=== PATIENT | male | born 1970 | race African-American/Black ===

== ENCOUNTER → 2017-02-21 | Outpatient (CLI) | payer OTHER ==
[2016-11-20 16:19] VITALS: BP 167/114
[~2017-02-21] MED LIST: ALBU2.5V5 NEB; ALBU8.5H6 INH; AZIT1PAC PO; CETI10TA16 PO; FLUT1DIS3 IH; FLUT9.9S NS
--- NOTE | 2017-02-21 12:48 | KCIC ---
PROCEDURE PA and lateral chest radiographs 02/21/2017 HISTORY Chronic cough and wheezing. FINDINGS PA and lateral digital radiographs of the chest were obtained. No previous studies are available for comparison. The cardiac silhouette is borderline enlarged. The thoracic aorta is mildly tortuous. Right middle lobe subsegmental atelectasis and/or infiltrate is noted. No pneumothorax or pleural effusion is seen. Mild degenerative changes are seen involving the thoracic spine. IMPRESSION Right middle lobe subsegmental atelectasis and/or infiltrate. Electronically signed by: Mack Nelson MD (February 21, 2017 12:47:06)
== END | disposition home or self-care (01) ==
LOC: KCIC 09:30
PROVIDERS: ATTEND Nurse Practitioner Family
DX: R05 Cough (principal); J98.11 Atelectasis; K76.89 Other specified diseases of liver; R06.2 Wheezing; G89.29 Other chronic pain
CPT/HCPCS: 71020

== ENCOUNTER → 2017-03-25 | Outpatient (CLI) | payer OTHER ==
[2016-11-20 16:19] VITALS: BP 167/114
--- NOTE | 2017-03-25 12:25 | KCIC ---
2 view chest HISTORY: Cough persistent. COMPARISON: February 21, 2017. FINDINGS: The cardiac silhouette remains mildly enlarged in transverse diameter. No pneumothorax. No pleural effusion. No focal airspace consolidation is seen. IMPRESSION: No evidence of active airspace disease. Electronically signed by: Philip Ruiz MD (03/25/2017 12:22 PM)
== END | disposition home or self-care (01) ==
LOC: KCIC 11:42
PROVIDERS: ATTEND Family Medicine
DX: R05 Cough (principal)
CPT/HCPCS: 71020

== ENCOUNTER 2017-06-03 05:37 | Inpatient (IN) | payer OTHER ==
[~2017-06-03] VITALS: Ht 180.3 cm; Wt 112.2 kg
[2017-06-03 06:50] LABS: BASO # 0.1 x10^3/uL (0.0-0.2); BASO % 1 % (0-3); EOS % 14 % (0-3); HEMATOCRIT 41.7 % (39.0-53.0); HEMOGLOBIN 13.8 g/dL (13.0-17.5); LYMPH # 1.9 x10^3/uL (1.0-4.8); LYMPH % 25 % (24-48); MEAN CORPUSCULAR HEMOGLOBIN 28 pg (25-35); MEAN CORPUSCULAR HGB CONC 33 g/dL (31-37); MEAN CORPUSCULAR VOLUME 83 fL (79-100); MONO % 5 % (0-9); NEUT % 56 % (31-73); PLATELET COUNT 304 x10^3/uL (140-400); RED BLOOD COUNT 5.03 x10^6/uL (4.30-5.70); RED CELL DISTRIBUTION WIDTH 13.2 % (11.5-14.5); WHITE BLOOD COUNT 7.6 x10^3/uL (4.0-11.0)
[2017-06-03] MEDS ORDERED: IPRATRPIUM/ALBUTEROL 0.5/2.5MG 3 ML NEBU. NEB ONE (07:00)
[2017-06-03] MEDS ORDERED: predniSONE 20 MG TABLET PO ONE (07:00)
[2017-06-03 07:05] LABS: CALCIUM 8.5 mg/dL (8.5-10.1); CREATININE 1.4 mg/dL (0.7-1.3); GFR 66.6; POTASSIUM 3.9 mmol/L (3.5-5.1)
--- NOTE | 2017-06-03 07:09 | EKG ---
[facility] [address] [place] [address] Test Date: 2017-06-03 Test Time: 06:53:16 Pat Name: LUCIO SUAREZ Department: Room: Gender: M [employer] Litigation Associate: : 1970 Requested By: RACHEL VALLE Order Number: [id number] Reading MD: Bang Mccoy Measurements Intervals [place] Rate: 74 P: 0 PA: 132 QRS: 5 QRSD: 154 T: -18 QT: 442 QTc: 497 Interpretive Statements SINUS RHYTHM POSSIBLE SEPTAL INFARCT IVCD NON-SPECIFIC ST/T CHANGES LVH Electronically Signed On 06-03-2017 12:06:26 CDT by Bang Mccoy
--- NOTE | 2017-06-03 07:18 | RAD ---
Exam performed: 2 views of the chest. Indication: medical workup/SHORTNESS OF BREATH Date of Service:06/03/2017 8:41 AM . Comparison : None available Findings: PA and lateral radiographs of the chest reveal a normal cardiomediastinal contour. The lungs are clear. No pleural fluid is seen. The visualized osseous structures are unremarkable. Impression: Radiographically normal chest.
[2017-06-03] MEDS ORDERED: NITROGLYCERIN OINT 1 GM PACKET. TP ONE (08:00)
[2017-06-03] MEDS ORDERED: ASPIRIN 325 MG TABLET PO ONE (08:00)
--- NOTE | 2017-06-03 08:09 | PHYS DOC ---
Past Medical History Past Medical History: Hypertension Past Surgical History: Other Additional Past Surgical Histo: NASAL SURG Alcohol Use: Occasionally Drug Use: Marijuana Adult General Chief Complaint Chief Complaint: ASTHMA HPI HPI 46-year-old male with no significant past medical history now presents to the emergency department because of wheezing and shortness of breath. Patient states he does not have a history of asthma nor has he ever been a smoker. Recently he's been wheezing and felt short of breath. He went to his primary care doctor who treated him for bronchospasm with steroids Zithromax and nebulized therapy and anticipated referring him to a health occupations instructor. Patient has not seen a health occupations instructor yet however this symptoms have worsened including increased shortness of breath with lying flat and feeling short of breath at night. He is more short of breath with exertion recently. Denies pleuritic pain or any chest pain or pressure. Patient states he occasionally has some white sputum but no yellow or green sputum. No fevers chills sweats or shaking chills and patient otherwise feels well. Review of Systems Review of Systems Constitutional: Denies fever or chills [] Eyes: Denies change in visual acuity, redness, or eye pain [] HENT: Denies nasal congestion or sore throat [] Respiratory: Denies cough or shortness of breath [] Cardiovascular: No additional information not addressed in HPI [] GI: Denies abdominal pain, nausea, vomiting, bloody stools or diarrhea [] : Denies dysuria or hematuria [] Musculoskeletal: Denies back pain or joint pain [] Integument: Denies rash or skin lesions [] Neurologic: Denies headache, focal weakness or sensory changes [] Endocrine: Denies polyuria or polydipsia [] Current Medications Current Medications Current Medications Medications (Trade) Dose Ordered Sig/Riky Start Time Stop Time Status Last Admin Dose Admin Albuterol/ Ipratropium (Duoneb) 3 ml 1X ONCE 06/03/17 07:00 06/03/17 07:01 DC 06/03/17 07:20 3 ML Aspirin (Misha Aspirin) 325 mg 1X ONCE 06/03/17 08:00 06/03/17 08:01 DC 06/03/17 07:58 325 MG Nitroglycerin (Nitro-Bid Oint) 1 inch 1X ONCE 06/03/17 08:00 06/03/17 08:01 DC 06/03/17 08:00 1 INCH Prednisone (Prednisone) 60 mg 1X ONCE 06/03/17 07:00 06/03/17 07:01 DC 06/03/17 06:52 60 MG Allergies Allergies Allergies Coded Allergies Type Severity Reaction Last Updated Verified No Known Drug Allergies 09/20/14 No Physical Exam Physical Exam Well-appearing 46-year-old male alert vigorous normal respiratory rate and pulse ox. Trace bilateral wheeze lung bases. No rales or rhonchi. No lower extremity tenderness or asymmetry Constitutional: Well developed, well nourished, no acute distress, non-toxic appearance. [] HENT: Normocephalic, atraumatic, bilateral external ears normal, oropharynx moist, no oral exudates, nose normal. [] Eyes: PERRLA, EOMI, conjunctiva normal, no discharge. [] Neck: Normal range of motion, no tenderness, supple, no stridor. [] Cardiovascular:Heart rate regular rhythm, no murmur [] Lungs & Thorax: Bilateral breath sounds clear to auscultation [] Abdomen: Bowel sounds normal, soft, no tenderness, no masses, no pulsatile masses. [] Skin: Warm, dry, no erythema, no rash. [] Back: No tenderness, no CVA tenderness. [] Extremities: No tenderness, no cyanosis, no clubbing, ROM intact, Neurologic: Alert and oriented X 3, normal motor function, normal sensory function, no focal deficits noted. [] Psychologic: Affect normal, judgement normal, mood normal. [] Current Patient Data Vital Signs Vital Signs Date Time Temp Pulse Resp B/P (MAP) Pulse Ox O2 Delivery O2 Flow Rate FiO2 06/03/17 08:00 80 167/114 06/03/17 07:20 95 Room Air 06/03/17 07:12 20 06/03/17 05:51 98.3 98.3 Lab Values Laboratory Tests Test 06/03/17 06:06 White Blood Count 7.6 x10^3/uL (4.0-11.0) Red Blood Count 5.03 x10^6/uL (4.30-5.70) Hemoglobin 13.8 g/dL (13.0-17.5) Hematocrit 41.7 % (39.0-53.0) Mean Corpuscular Volume 83 fL (79-100) Mean Corpuscular Hemoglobin 28 pg (25-35) Mean Corpuscular Hemoglobin Concent 33 g/dL (31-37) Red Cell Distribution Width 13.2 % (11.5-14.5) Platelet Count 304 x10^3/uL (140-400) Neutrophils (%) (Auto) 56 % (31-73) Lymphocytes (%) (Auto) 25 % (24-48) Monocytes (%) (Auto) 5 % (0-9) Eosinophils (%) (Auto) 14 % (0-3) H Basophils (%) (Auto) 1 % (0-3) Neutrophils # (Auto) 4.2 x10^3uL (1.8-7.7) Lymphocytes # (Auto) 1.9 x10^3/uL (1.0-4.8) Monocytes # (Auto) 0.4 x10^3/uL (0.0-1.1) Eosinophils # (Auto) 1.0 x10^3/uL (0.0-0.7) H Basophils # (Auto) 0.1 x10^3/uL (0.0-0.2) Sodium Level 139 mmol/L (136-145) Potassium Level 3.9 mmol/L (3.5-5.1) Chloride Level 102 mmol/L (98-107) Carbon Dioxide Level 28 mmol/L (21-32) Anion Gap 9 (6-14) Blood Urea Nitrogen 17 mg/dL (8-26) Creatinine 1.4 mg/dL (0.7-1.3) H Estimated GFR (Cockcroft-Gault) 66.6 Glucose Level 101 mg/dL (70-99) H Calcium Level 8.5 mg/dL (8.5-10.1) Troponin I Quantitative 0.332 ng/mL (0.000-0.055) CI-Etd-I-Type Natriuretic Peptide 524 pg/mL (0-124) H Laboratory Tests 06/03/17 06:06 Laboratory Tests 06/03/17 06:06 EKG EKG [] Radiology/Procedures Radiology/Procedures [] Course & Med Decision Making Course & Med Decision Making Pertinent Labs and Imaging studies reviewed. (See chart for details)\ 46-year-old male with no history of tobacco or asthma now with signs and symptoms consistent with bronchospasm secondary to a viral illness versus cardiac wheeze. EKG unremarkable and chest x-ray benign. Troponin elevated at 0.332. Full strength aspirin given. ENP elevated at 524 consistent with mild new -onset CHF likely from a cardiac event. Patient is stable and well-appearing. Case discussed with cardiology on-call Dr. Mata who is aware of the history and findings and will provide consultation for this patient during admission. Case will be discussed with Dr. fonseca regarding inpatient admission to the CBC unit. Patient stable on multiple reevaluation 33 mins critical care [] Dragon Disclaimer Dragon Disclaimer This electronic medical record was generated, in whole or in part, using a voice recognition dictation system. Departure Departure Impression: Primary Impression: Non-STEMI (non-ST elevated myocardial infarction) Additional Impression: New onset of congestive heart failure Disposition: ADMITTED INPATIENT Admitting Physician: Michelle Fonseca Condition: GUARDED Referrals: UNKNOWN PCP NAME (PCP) Problem Qualifiers RACHEL VALLE MD Jun 03, 2017 08:09
[2017-06-03] MEDS ORDERED: BUDESONIDE 0.5 MG/2 ML NEBU. NEB ONE (08:45)
[2017-06-03 09:14] LABS: ALBUMIN 3.7 g/dL (3.4-5.0); DIRECT BILIRUBIN 0.2 mg/dL (0.0-0.2); TOTAL PROTEIN 7.5 g/dL (6.4-8.2)
--- NOTE | 2017-06-03 09:45 | PDOC2 ---
AGUSTINA WATSON WIRELESS DEVELOPMENT MANAGER 06/03/17 0945: CARDIAC CONSULT DATE OF CONSULT Date of Consult DATE: 06/03/17 TIME: 09:42 REASON FOR CONSULT Reason for Consult: New onset CHF Elevated troponin REFERRING PHYSICIAN Referring Physician: Dr. Cage SOURCE Source: Chart review, Patient HISTORY OF PRESENT ILLNESS HISTORY OF PRESENT ILLNESS This is a 46 yo male who presented with complaints of shortness of breath. Patient reports chronic SOA and nasal congestion, although congestion has improved slightly since sinus surgery a year ago. Shortness of breath has been worse over the last coupled of weeks. Significantly worse in the last couple of days and was associated with wheezing. Has nebulizer and inhalers at home. Generally improve symptoms, but has not obtained any relief in symptoms in the last couple of days. Denies any chest pain, palpitations, diaphoresis, nausea/ vomiting, orthopnea, or LE edema. Did have some mild dizziness this morning. Initial labs with troponin level at 0.332. Nt Pro BNP mildly elevated at 524, but CXR without vascular congestion. PAST MEDICAL HISTORY Cardiovascular: HTN Pulmonary: Asthma GI: No pertinent hx Heme/Onc: No pertinent hx Hepatobiliary: No pertinent hx Psych: No pertinent hx Rheumatologic: No pertinent hx Infectious disease: No pertinent hx ENT: No pertinent hx Renal/: No pertinent hx Endocrine: No pertinent hx Dermatology: No pertinent hx PAST SURGICAL HISTORY Past Surgical History: Other (nasal sx) FAMILY HISTORY Family History: Hypertension SOCIAL HISTORY Smoke: No ALCOHOL: none Drugs: Marijuana (quit about 3 months ago; was daily use) Lives: with Family CURRENT MEDICATIONS CURRENT MEDICATIONS Current Medications Medications (Trade) Dose Ordered Sig/Riky Route PRN Reason Start Time Stop Time Status Last Admin Dose Admin Prednisone (Prednisone) 60 mg 1X ONCE PO 06/03/17 07:00 06/03/17 07:01 DC 06/03/17 06:52 Albuterol/ Ipratropium (Duoneb) 3 ml 1X ONCE NEB 06/03/17 07:00 06/03/17 07:01 DC 06/03/17 07:20 Nitroglycerin (Nitro-Bid Oint) 1 inch 1X ONCE TP 06/03/17 08:00 06/03/17 08:01 DC 06/03/17 08:00 Aspirin (Misha Aspirin) 325 mg 1X ONCE PO 06/03/17 08:00 06/03/17 08:01 DC 06/03/17 07:58 ALLERGIES ALLERGIES: Coded Allergies: No Known Drug Allergies (Unverified , 09/20/14) ROS Review of System 14 point ROS conducted with pertinent positives noted above in HPI. PHYSICAL EXAM General: Alert, Oriented X3, Cooperative, No acute distress HEENT: Atraumatic, Mucous membr. moist/pink Lungs: Clear to auscultation (expiratory wheezes) Heart: Regular rate, Normal S1, Normal S2 Abdomen: Soft, No tenderness Extremities: No edema, Normal pulses Skin: No significant lesion Neuro: Normal speech, Sensation intact Psych/Mental Status: Mental status NL, Mood NL MUSCULOSKELETAL: No joint tenderness VITALS VITALS Vital Signs Date Time Temp Pulse Resp B/P (MAP) Pulse Ox O2 Delivery O2 Flow Rate FiO2 06/03/17 08:12 77 18 161/108 (125) 95 Room Air 06/03/17 05:51 98.3 98.3 LABS Lab: Laboratory Tests Test 06/03/17 06:06 White Blood Count 7.6 x10^3/uL (4.0-11.0) Red Blood Count 5.03 x10^6/uL (4.30-5.70) Hemoglobin 13.8 g/dL (13.0-17.5) Hematocrit 41.7 % (39.0-53.0) Mean Corpuscular Volume 83 fL (79-100) Mean Corpuscular Hemoglobin 28 pg (25-35) Mean Corpuscular Hemoglobin Concent 33 g/dL (31-37) Red Cell Distribution Width 13.2 % (11.5-14.5) Platelet Count 304 x10^3/uL (140-400) Neutrophils (%) (Auto) 56 % (31-73) Lymphocytes (%) (Auto) 25 % (24-48) Monocytes (%) (Auto) 5 % (0-9) Eosinophils (%) (Auto) 14 % (0-3) Basophils (%) (Auto) 1 % (0-3) Neutrophils # (Auto) 4.2 x10^3uL (1.8-7.7) Lymphocytes # (Auto) 1.9 x10^3/uL (1.0-4.8) Monocytes # (Auto) 0.4 x10^3/uL (0.0-1.1) Eosinophils # (Auto) 1.0 x10^3/uL (0.0-0.7) Basophils # (Auto) 0.1 x10^3/uL (0.0-0.2) Sodium Level 139 mmol/L (136-145) Potassium Level 3.9 mmol/L (3.5-5.1) Chloride Level 102 mmol/L (98-107) Carbon Dioxide Level 28 mmol/L (21-32) Anion Gap 9 (6-14) Blood Urea Nitrogen 17 mg/dL (8-26) Creatinine 1.4 mg/dL (0.7-1.3) Estimated GFR (Cockcroft-Gault) 66.6 Glucose Level 101 mg/dL (70-99) Calcium Level 8.5 mg/dL (8.5-10.1) Total Bilirubin 1.0 mg/dL (0.2-1.0) Direct Bilirubin 0.2 mg/dL (0.0-0.2) Aspartate Amino Transf (AST/SGOT) 19 U/L (15-37) Alanine Aminotransferase (ALT/SGPT) 32 U/L (16-63) Alkaline Phosphatase 98 U/L (46-116) Troponin I Quantitative 0.332 ng/mL (0.000-0.055) SH-Kbz-H-Type Natriuretic Peptide 524 pg/mL (0-124) Total Protein 7.5 g/dL (6.4-8.2) Albumin 3.7 g/dL (3.4-5.0) ASSESSMENT/PLAN ASSESSMENT/PLAN 1. Dyspnea 2. NSTEMI 3. Elevated NT Pro BNP 4. Hypertension 5. SUSHILA with ? CKD; baseline Cr near 1.0 in 2015 Recommendations Trend troponin Check lipids Add Norvasc for BP control (BP consistently elevated during previous hospitalization as well). Check echo to assess LV function/presence of WMA Keep NPO after MN. Will plan for ischemic workup in am, cath versus MPI, pending further labs/diagnostics. Will d/w primary gate tender. Problems: CONNIE LEON MD 06/04/17 0820: CARDIAC CONSULT ALLERGIES ALLERGIES: Coded Allergies: No Known Drug Allergies (Unverified , 09/20/14) ASSESSMENT/PLAN ASSESSMENT/PLAN Patient seen and examined. Agree with above nurse practitioner note. Late entry for 06/03/2017. 36-year-old man presenting with progressive dyspnea. On examination he has normal heart and lung sounds. Echocardiogram with severe LV dysfunction. Plan for cardiac catheterization Problems: AGUSTINA WATSON APRN Jun 03, 2017 09:45 CONNIE LEON MD Jun 04, 2017 08:20
[2017-06-03 10:00] VITALS: BP 163/100
[2017-06-03 11:00] VITALS: BP 163/100
[2017-06-03] MEDS: IPRATRPIUM/ALBUTEROL 0.5/2.5MG 3 ML NEBU. NEB SCH ×4 (12:43→23:08)
[2017-06-03] MEDS: amLODIPine BESYLATE 5 MG TABLET PO SCH (13:04)
--- NOTE | 2017-06-03 13:07 | PDOC1 ---
History and Physical Date of Admission Date of Admission DATE: 06/03/17 TIME: 13:01 Identification/Chief Complaint Chief Complaint cough, wheeze, dyspnea Problems: Source Source: Chart review, Patient History of Present Illness History of Present Illness MR. Parnell is a 46 yo male, recent diagnosed with asthma. Presented without improvement of wheeze, weakness and shortness of breath have been worsening over days. not fully diagnosed with asthma, but given nebs recently that have not helped much, his symptoms have gone on for months, he stopped smoking THC due to his cough and shortness of breath with wheeze. He does get more short of breath when lying supine, and does sit up to "have less wheezing" recent z-pack did not improve his symptoms. noted worse exercise intolerance recently no chest pain, no tobacco use, no family hx cad Past Medical History Cardiovascular: HTN Pulmonary: Asthma GI: No pertinent hx Heme/Onc: No pertinent hx Hepatobiliary: No pertinent hx Psych: No pertinent hx Rheumatologic: No pertinent hx Infectious disease: No pertinent hx ENT: No pertinent hx Renal/: No pertinent hx Endocrine: No pertinent hx Dermatology: No pertinent hx Past Surgical History Past Surgical History: Other (nasal sx) Family History Family History: Hypertension Social History Smoke: No ALCOHOL: none Drugs: Marijuana (quit about 3 months ago; was daily use) Current Problem List Problem List Problems Medical Problems: (1) New onset of congestive heart failure Status: Acute Problems: Current Medications Current Medications Current Medications Prednisone (Prednisone) 60 mg 1X ONCE PO Last administered on 06/03/17 06:52 ; Start 06/03/17 at 07:00; Stop 06/03/17 at 07:01; Status DC Albuterol/ Ipratropium (Duoneb) 3 ml 1X ONCE NEB Last administered on 07:20; Start 06/03/17 at 07:00; Stop 06/03/17 at 07:01; Status DC Nitroglycerin (Nitro-Bid Oint) 1 inch 1X ONCE TP Last administered on 08:00; Start 06/03/17 at 08:00; Stop 06/03/17 at 08:01; Status DC Aspirin (Misha Aspirin) 325 mg 1X ONCE PO Last administered on 06/03/17 07:58 ; Start 06/03/17 at 08:00; Stop 06/03/17 at 08:01; Status DC Budesonide (Pulmicort) 0.5 mg 1X ONCE NEB Last administered on 06/03/17 12:44 ; Start 06/03/17 at 08:45; Stop 06/03/17 at 08:46; Status DC Albuterol/ Ipratropium (Duoneb) 3 ml Q4HRS W/A NEB Last administered on 12:43; Start 06/03/17 at 10:00 Amlodipine Besylate (Norvasc) 5 mg DAILY PO ; Start 06/03/17 at 11:30 Active Scripts Active Albuterol Sulfate Neb Soln (Albuterol Sulfate) 2.5 Mg/3 Ml Vial.neb 1 Vial NEB PRN Q4HRS PRN Reported Zithromax Packet (Azithromycin) 1 Gm Packet 1 Packet PO ONCE take as directed, antibiotic for infection Flonase Allergy Relief (Fluticasone Propionate) 9.9 Ml [place].susp 9.9 Ml NS QID 1-2 sprays four times daily for congestion Advair 250-50 Diskus (Fluticasone/Salmeterol) 1 Each Disk.w.dev 1 Inh IH BID Albuterol Sulfate Hfa Inhaler (Albuterol Sulfate) 8.5 Gm Hfa.aer.ad 2 Puff INH Q2HR as needed every 2 hours for shortness of air Cetirizine Hcl 10 Mg Tablet 10 Mg PO DAILY Allergies Allergies: Coded Allergies: No Known Drug Allergies (Unverified , 09/20/14) ROS General: No: Chills, Night Sweats, Fatigue, Malaise, Appetite, Other PSYCHOLOGICAL ROS: No: Anxiety, Behavioral Disorder, Concentration difficultie , Decreased libido, Depression, Disorientation, Hallucinations, Hostility, Irritablity, Memory difficulties, Mood Swings, Obsessive thoughts, Physical abuse, Sexual abuse, Sleep disturbances, Suicidal ideation, Other Respiratory: YES: Cough, SOB with excertion, Wheezing, No: Hemoptysis, Orthopnea, Pleuritic Pain, Shortness of breath, Sputum Changes, Stridor, Tachypnea, Other Cardiovascular: No Chest Pain, No Palpitations, No Orthopnea, No Paroxysmal Noc. Dyspnea, No Edema, No Lt Headedness, No Other Gastrointestinal: No Nausea, No Vomiting, No Abdominal Pain, No Diarrhea, No Constipation, No Melena, No Hematochezia, No Other Genitourinary: No Dysuria, No Frequency, No Incontinence, No Hematuria, No Retention, No Discharge, No Urgency, No Pain, No Flank Pain, No Other, No , No , No , No , No , No , No Musculoskeletal: Yes Joint Stiffness, No Gait Disturbance, No Joint Pain, No Joint Swelling, No Muscle Pain, No Muscular Weakness, No Pain In:, No Swelling In:, No Other Neurological: No Behavorial Changes, No Bowel/Bladder ControlChng, No Confusion , No Dizziness, No Gait Disturbance, No Headaches, No Impaired Coord/balance, No Memory Loss, No Numbness/Tingling, No Seizures, No Speech Problems, No Tremors, No Visual Changes, No Weakness, No Other Skin: No Dry Skin, No Eczema, No Hair Changes, No Lumps, No Mole Changes, No Mottling, No Nail Changes, No Pruritus, No Rash, No Skin Lesion Changes, No Other, No Acne Physical Exam General: Alert, Oriented X3, Cooperative, mild distress HEENT: Atraumatic, PERRLA, EOMI, Mucous membr. moist/pink Lungs: Clear to auscultation Heart: no murmurs, other (small gallop, reg) Abdomen: Normal bowel sounds, Soft Rectal Exam: not examined Extremities: No clubbing, No edema, Normal pulses Skin: No rashes, No breakdown, No significant lesion Neuro: Normal speech, Sensation intact, Cranial nerves 3-12 NL Psych/Mental Status: Mental status NL, Mood NL Vitals Vitals Vital Signs Date Time Temp Pulse Resp B/P (MAP) Pulse Ox O2 Delivery O2 Flow Rate FiO2 06/03/17 12:50 93 Room Air 06/03/17 11:00 97.8 85 19 163/100 (121) 97.8 Labs Labs Laboratory Tests Test 06/03/17 06:06 White Blood Count 7.6 x10^3/uL (4.0-11.0) Red Blood Count 5.03 x10^6/uL (4.30-5.70) Hemoglobin 13.8 g/dL (13.0-17.5) Hematocrit 41.7 % (39.0-53.0) Mean Corpuscular Volume 83 fL (79-100) Mean Corpuscular Hemoglobin 28 pg (25-35) Mean Corpuscular Hemoglobin Concent 33 g/dL (31-37) Red Cell Distribution Width 13.2 % (11.5-14.5) Platelet Count 304 x10^3/uL (140-400) Neutrophils (%) (Auto) 56 % (31-73) Lymphocytes (%) (Auto) 25 % (24-48) Monocytes (%) (Auto) 5 % (0-9) Eosinophils (%) (Auto) 14 % (0-3) Basophils (%) (Auto) 1 % (0-3) Neutrophils # (Auto) 4.2 x10^3uL (1.8-7.7) Lymphocytes # (Auto) 1.9 x10^3/uL (1.0-4.8) Monocytes # (Auto) 0.4 x10^3/uL (0.0-1.1) Eosinophils # (Auto) 1.0 x10^3/uL (0.0-0.7) Basophils # (Auto) 0.1 x10^3/uL (0.0-0.2) Sodium Level 139 mmol/L (136-145) Potassium Level 3.9 mmol/L (3.5-5.1) Chloride Level 102 mmol/L (98-107) Carbon Dioxide Level 28 mmol/L (21-32) Anion Gap 9 (6-14) Blood Urea Nitrogen 17 mg/dL (8-26) Creatinine 1.4 mg/dL (0.7-1.3) Estimated GFR (Cockcroft-Gault) 66.6 Glucose Level 101 mg/dL (70-99) Calcium Level 8.5 mg/dL (8.5-10.1) Total Bilirubin 1.0 mg/dL (0.2-1.0) Direct Bilirubin 0.2 mg/dL (0.0-0.2) Aspartate Amino Transf (AST/SGOT) 19 U/L (15-37) Alanine Aminotransferase (ALT/SGPT) 32 U/L (16-63) Alkaline Phosphatase 98 U/L (46-116) Troponin I Quantitative 0.332 ng/mL (0.000-0.055) XC-Jrl-C-Type Natriuretic Peptide 524 pg/mL (0-124) Total Protein 7.5 g/dL (6.4-8.2) Albumin 3.7 g/dL (3.4-5.0) Laboratory Tests Test 06/03/17 06:06 White Blood Count 7.6 x10^3/uL (4.0-11.0) Red Blood Count 5.03 x10^6/uL (4.30-5.70) Hemoglobin 13.8 g/dL (13.0-17.5) Hematocrit 41.7 % (39.0-53.0) Mean Corpuscular Volume 83 fL (79-100) Mean Corpuscular Hemoglobin 28 pg (25-35) Mean Corpuscular Hemoglobin Concent 33 g/dL (31-37) Red Cell Distribution Width 13.2 % (11.5-14.5) Platelet Count 304 x10^3/uL (140-400) Neutrophils (%) (Auto) 56 % (31-73) Lymphocytes (%) (Auto) 25 % (24-48) Monocytes (%) (Auto) 5 % (0-9) Eosinophils (%) (Auto) 14 % (0-3) Basophils (%) (Auto) 1 % (0-3) Neutrophils # (Auto) 4.2 x10^3uL (1.8-7.7) Lymphocytes # (Auto) 1.9 x10^3/uL (1.0-4.8) Monocytes # (Auto) 0.4 x10^3/uL (0.0-1.1) Eosinophils # (Auto) 1.0 x10^3/uL (0.0-0.7) Basophils # (Auto) 0.1 x10^3/uL (0.0-0.2) Sodium Level 139 mmol/L (136-145) Potassium Level 3.9 mmol/L (3.5-5.1) Chloride Level 102 mmol/L (98-107) Carbon Dioxide Level 28 mmol/L (21-32) Anion Gap 9 (6-14) Blood Urea Nitrogen 17 mg/dL (8-26) Creatinine 1.4 mg/dL (0.7-1.3) Estimated GFR (Cockcroft-Gault) 66.6 Glucose Level 101 mg/dL (70-99) Calcium Level 8.5 mg/dL (8.5-10.1) Total Bilirubin 1.0 mg/dL (0.2-1.0) Direct Bilirubin 0.2 mg/dL (0.0-0.2) Aspartate Amino Transf (AST/SGOT) 19 U/L (15-37) Alanine Aminotransferase (ALT/SGPT) 32 U/L (16-63) Alkaline Phosphatase 98 U/L (46-116) Troponin I Quantitative 0.332 ng/mL (0.000-0.055) YK-Ror-O-Type Natriuretic Peptide 524 pg/mL (0-124) Total Protein 7.5 g/dL (6.4-8.2) Albumin 3.7 g/dL (3.4-5.0) VTE Prophylaxis Ordered VTE Prophylaxis Devices: Yes VTE Pharmacological Prophylaxi: No Assessment/Plan Assessment/Plan acutely worsening shortness of breath wheeze, possible asthma or reactive airway disease, CXR clear, check peak flow PULM consult, troponin elevation, r./o ACS, eval for NSTEMI CV consult, BNP elevated, poss acute systolic CHF, check Echo, HTN, possble benign obesity, BMI 36 MUNDO MCDONALD MD Jun 03, 2017 13:07
[2017-06-03 15:00] VITALS: BP 176/89
[2017-06-03] MEDS ORDERED: ASA/APAP/CAFFEINE 250/250/65MG TABLET. PO PRN (15:00)
[2017-06-03] MEDS ORDERED: traMADol 50 MG TABLET PO PRN (15:00)
--- NOTE | 2017-06-03 15:54 | PDOC ---
PULMONARY PROGRESS NOTES Vitals Vital Signs Date Time Temp Pulse Resp B/P (MAP) Pulse Ox O2 Delivery O2 Flow Rate FiO2 06/03/17 13:04 85 163/100 06/03/17 12:50 93 Room Air 06/03/17 11:00 97.8 19 97.8 General: Alert Lungs: Clear Cardiovascular: S1 Abdomen: Soft Extremities: No Edema Labs Laboratory Tests Test 06/03/17 06:06 06/03/17 13:30 White Blood Count 7.6 x10^3/uL (4.0-11.0) Red Blood Count 5.03 x10^6/uL (4.30-5.70) Hemoglobin 13.8 g/dL (13.0-17.5) Hematocrit 41.7 % (39.0-53.0) Mean Corpuscular Volume 83 fL (79-100) Mean Corpuscular Hemoglobin 28 pg (25-35) Mean Corpuscular Hemoglobin Concent 33 g/dL (31-37) Red Cell Distribution Width 13.2 % (11.5-14.5) Platelet Count 304 x10^3/uL (140-400) Neutrophils (%) (Auto) 56 % (31-73) Lymphocytes (%) (Auto) 25 % (24-48) Monocytes (%) (Auto) 5 % (0-9) Eosinophils (%) (Auto) 14 % (0-3) Basophils (%) (Auto) 1 % (0-3) Neutrophils # (Auto) 4.2 x10^3uL (1.8-7.7) Lymphocytes # (Auto) 1.9 x10^3/uL (1.0-4.8) Monocytes # (Auto) 0.4 x10^3/uL (0.0-1.1) Eosinophils # (Auto) 1.0 x10^3/uL (0.0-0.7) Basophils # (Auto) 0.1 x10^3/uL (0.0-0.2) Sodium Level 139 mmol/L (136-145) Potassium Level 3.9 mmol/L (3.5-5.1) Chloride Level 102 mmol/L (98-107) Carbon Dioxide Level 28 mmol/L (21-32) Anion Gap 9 (6-14) Blood Urea Nitrogen 17 mg/dL (8-26) Creatinine 1.4 mg/dL (0.7-1.3) Estimated GFR (Cockcroft-Gault) 66.6 Glucose Level 101 mg/dL (70-99) Calcium Level 8.5 mg/dL (8.5-10.1) Total Bilirubin 1.0 mg/dL (0.2-1.0) Direct Bilirubin 0.2 mg/dL (0.0-0.2) Aspartate Amino Transf (AST/SGOT) 19 U/L (15-37) Alanine Aminotransferase (ALT/SGPT) 32 U/L (16-63) Alkaline Phosphatase 98 U/L (46-116) Troponin I Quantitative 0.332 ng/mL (0.000-0.055) 0.282 ng/mL (0.000-0.055) DM-Nbw-V-Type Natriuretic Peptide 524 pg/mL (0-124) Total Protein 7.5 g/dL (6.4-8.2) Albumin 3.7 g/dL (3.4-5.0) Laboratory Tests Test 06/03/17 06:06 06/03/17 13:30 White Blood Count 7.6 x10^3/uL (4.0-11.0) Red Blood Count 5.03 x10^6/uL (4.30-5.70) Hemoglobin 13.8 g/dL (13.0-17.5) Hematocrit 41.7 % (39.0-53.0) Mean Corpuscular Volume 83 fL (79-100) Mean Corpuscular Hemoglobin 28 pg (25-35) Mean Corpuscular Hemoglobin Concent 33 g/dL (31-37) Red Cell Distribution Width 13.2 % (11.5-14.5) Platelet Count 304 x10^3/uL (140-400) Neutrophils (%) (Auto) 56 % (31-73) Lymphocytes (%) (Auto) 25 % (24-48) Monocytes (%) (Auto) 5 % (0-9) Eosinophils (%) (Auto) 14 % (0-3) Basophils (%) (Auto) 1 % (0-3) Neutrophils # (Auto) 4.2 x10^3uL (1.8-7.7) Lymphocytes # (Auto) 1.9 x10^3/uL (1.0-4.8) Monocytes # (Auto) 0.4 x10^3/uL (0.0-1.1) Eosinophils # (Auto) 1.0 x10^3/uL (0.0-0.7) Basophils # (Auto) 0.1 x10^3/uL (0.0-0.2) Sodium Level 139 mmol/L (136-145) Potassium Level 3.9 mmol/L (3.5-5.1) Chloride Level 102 mmol/L (98-107) Carbon Dioxide Level 28 mmol/L (21-32) Anion Gap 9 (6-14) Blood Urea Nitrogen 17 mg/dL (8-26) Creatinine 1.4 mg/dL (0.7-1.3) Estimated GFR (Cockcroft-Gault) 66.6 Glucose Level 101 mg/dL (70-99) Calcium Level 8.5 mg/dL (8.5-10.1) Total Bilirubin 1.0 mg/dL (0.2-1.0) Direct Bilirubin 0.2 mg/dL (0.0-0.2) Aspartate Amino Transf (AST/SGOT) 19 U/L (15-37) Alanine Aminotransferase (ALT/SGPT) 32 U/L (16-63) Alkaline Phosphatase 98 U/L (46-116) Troponin I Quantitative 0.332 ng/mL (0.000-0.055) 0.282 ng/mL (0.000-0.055) TA-Qar-R-Type Natriuretic Peptide 524 pg/mL (0-124) Total Protein 7.5 g/dL (6.4-8.2) Albumin 3.7 g/dL (3.4-5.0) Medications Active Scripts Medications Dose Route/Sig Max Daily Dose Days Date Category Dose Instructions Albuterol Sulfate Neb Soln (Albuterol Sulfate) 2.5 Mg/3 Ml Vial.neb 1 Vial NEB PRN Q4HRS PRN 11/20/16 Rx Zithromax Packet (Azithromycin) 1 Gm Packet 1 Packet PO ONCE 01/26/15 Reported take as directed, antibiotic for infection Flonase Allergy Relief (Fluticasone Propionate) 9.9 Ml [place].susp 9.9 Ml NS QID 01/26/15 Reported 1-2 sprays four times daily for congestion Advair 250-50 Diskus (Fluticasone/Salmeterol) 1 Each Disk.w.dev 1 Inh IH BID 01/26/15 Reported Albuterol Sulfate Hfa Inhaler (Albuterol Sulfate) 8.5 Gm Hfa.aer.ad 2 Puff INH Q2HR 01/26/15 Reported as needed every 2 hours for shortness of air Cetirizine Hcl 10 Mg Tablet 10 Mg PO DAILY 01/26/15 Reported Impression . FULL CONSULT DICTATED ACUTE EXAC OF ASTHMA ACUTE NONSPECIFIC BRONCHITIS ADD FLOVENT UPON D/C FOLLOW UP IN OFFICE TAPER PRED MOSES ALCANTARA MD Jun 03, 2017 15:54
[2017-06-03] MEDS: predniSONE 20 MG TABLET PO SCH (16:30)
[2017-06-03] MEDS: CARVEDILOL 3.125 MG TABLET. PO SCH (16:54)
[2017-06-03 19:30] VITALS: BP 142/94
[2017-06-03] MEDS ORDERED: cloNIDine HCL 0.2 MG TABLET PO PRN (20:00)
--- NOTE | 2017-06-03 20:37 | RAD ---
EXAM: Right lower extremity venous Doppler sonogram. HISTORY: Pain. TECHNIQUE: [place] scale and color Doppler sonographic evaluation of the right lower extremity veins with spectral waveform analysis was performed. FINDINGS: There is normal color flow, normal compressibility and there are normal spectral waveforms in the common femoral, superficial femoral, popliteal, posterior tibial and greater saphenous veins. IMPRESSION: No Doppler evidence of lower extremity venous thrombosis. Electronically signed by: Khloe Norman MD (06/03/2017 8:33 PM) [facility]
--- NOTE | 2017-06-03 21:11 | CONS ---
DATE OF CONSULTATION: 06/03/2017 ATTENDING PHYSICIAN: Michelle Cervantes M.D. REASON FOR CONSULTATION: The patient seen in pulmonary consultation at the request of Dr. Cervantes for increasing shortness of breath and wheeze. HISTORY OF PRESENT ILLNESS: The patient is a 46-year-old who smokes on and off and presented to the Emergency Room with increasing shortness of breath and wheezing. He normally exercises on a regular basis and has been unable to utilize the treadmill as a consequence. Cough is mostly nonproductive. There is no history of asthma or COPD. There is no family history of asthma. He does have some allergies, but he has never had any formal allergy testing. He has used albuterol in the past with some improvement. He used his family's nebulizer machine. He states that nebulized solution seems to help. He has never been on a steroid inhaler. He has had multiple episodes similar to what has been described above. He was recently treated as an outpatient with Zithromax and nebulized treatments with no significant improvement. He failed outpatient therapy and was admitted. PAST MEDICAL HISTORY: Remarkable for hypertension, suspect asthma, allergies. PAST SURGICAL HISTORY: He has had some nasal surgery in the past. SOCIAL HISTORY: He occasionally uses marijuana. Occasional alcohol use. Occasional tobacco use. REVIEW OF SYSTEMS: As indicated above. Otherwise, a 10-point system was reviewed and negative. MEDICATIONS: List was reviewed. ALLERGIES: No known drug allergies. FAMILY HISTORY: No family history of asthma. PHYSICAL EXAMINATION: GENERAL: The patient was in no severe respiratory distress. VITAL SIGNS: Room air saturation was greater than 92%. HEENT: Eyes: The sclerae were nonicteric. NECK: Jugular venous distention was not elevated. No lymphadenopathy. CHEST: Full expansion. LUNGS: He had bilateral inspiratory and expiratory wheezing. CARDIOVASCULAR: Regular rate and rhythm with S1 and S2, no S3. ABDOMEN: Soft, nontender, nondistended. EXTREMITIES: No clubbing, cyanosis or edema. IMAGING DATA: Chest x-ray was reviewed, no acute cardiopulmonary process. LABORATORIES: Reviewed. White count was normal. Hemoglobin and hematocrit were noted. Electrolytes were noted. BUN was normal. Troponin level was elevated. BNP was slightly elevated. IMPRESSION: 1. Progressive dyspnea and bronchospasm secondary to acute exacerbation of asthma. 2. Acute exacerbation of asthma, suspect secondary to acute bronchitis and inhalation of marijuana smoke. 3. Elevated troponin level per Cardiology. 4. Seasonal allergies. 5. Clinical symptoms and signs of obstructive sleep apnea. PLAN: 1. Recommend the patient be started on Flovent 220 two puffs twice a day. 2. Discharge home on a tapering dose of prednisone. 3. Discharge home on doxycycline. 4. Avoid inhalation of any irritant fumes or tobacco. 5. Follow up in the office for pulmonary function testing. 6. The patient instructed on the importance of discontinuing tobacco and marijuana use. 7. Possible outpatient polysomnogram. I do appreciate the privilege in sharing in the patient's care. MOSES ALCANTARA MD DR: ALYSSA/jayesh JOB#: [id number] / [id number]
[2017-06-03 23:00] VITALS: BP 160/99
[2017-06-03] MEDS ORDERED: FUROSEMIDE 40 MG/4 ML VIAL. IVP ONE (23:30)
[2017-06-04] VITALS (12 sets, daily range): BP systolic 140–168; BP diastolic 65–102
--- NOTE | 2017-06-04 02:18 | ACF ---
Admission Forms Criteria MYOCARDIAL INFARCTION Clinical Indications for Admission to Inpatient Care (Place 'X' for any and all applicable criteria): Admission is indicated for 1 or more of the following (1)(2)(3)(4): [X]I. Acute OR [ ]II. Contraindications and/or Inappropriate clinical situations for Observational Care in patients with Myocardial Infarction, when ANY ONE of the following is required: [ ]a) Patient with High risk of cardiac embolism (e.g, patients with previous cardiac embolism, LVEF < 40%, age >75 and patients with prosthetic valve) 18 [ ]b) Patient with Moderate risk including DM patient, CAD and patient aged 65-75 18 [ ]c) Patient with any change in cardiac biomarker especially troponin should be managed as high risk in an inpatient setting 19 [ ]d) Physician judgement irrespective of ECG and other diagnostic findings 20 [ ]III.General contraindications and/or Inappropriate clinical situations for Observational Care in patients with Myocardial Infarction, when ANY ONE of the following is required: [ ]a) Prediction of prolongation of LOS based on ANY ONE of the following may be considered as a contraindication for observational care 2, 3, 4, 5, 6, 7, 8, 9, 10, 11 [ ]i) Age > 65 yrs. [ ]ii) Patient arriving by ambulance [ ]iii) Patient with high acuity [ ]iv) Patient requiring vital sign monitoring [ ]v) Patient on IV medication [ ]b) Systolic blood pressures greater than or equal to 180mmHg 3,12 [ ]c) Patient with altered mental status including delirium and other alteration of consciousness, (3) [ ]d) Patient whose discharge disposition will be to a correction home or rehabilitation home should not be managed in Emergency Department Observation Unit. CMS rule requires 3 days hospital stay before such placement. 3,13 [ ]e) Patient with failure to thrive due to broad array of etiologies 3 ,16,17 [ ]f) Inability to ambulate 3,14 Extended stay beyond goal length of stay may be needed for (1)(18)(20)(24)(25): [ ]a) Hemodynamic instability, persisting symptoms after intensive medical management, or recurring severe, prolonged symptoms [ ]b) Intravascular procedural complications such as acute vessel closure, stent thrombosis, stent malposition, or vessel dissection (26)(27)(28) [ ]c) Extravascular procedural complications such as retroperitoneal hematoma , pericardial effusion, or cardiac tamponade [ ]d) Entry site complications causing bleeding, hematoma or distal ischemia and requiring ongoing monitoring, surgical repair or surgical thrombectomy. Dangerous arrhythmia [ ]e) Complicated percutaneous coronary intervention (e.g., unsuccessful percutaneous coronary intervention or percutaneous coronary intervention of non- [place] vessel) [ ]f) Urgent or emergent surgery for complications of OR (e.g., ventricular rupture, valvular insufficiency) [ ]g) Surgical revascularization via coronary artery bypass graft [ ]h) Heart failure (e.g., pulmonary edema) [ ]i) Unstable pulmonary comorbidities, including COPD or pneumonia (31) [ ]j) Acute renal failure The original [employer] content created by [employer] has been revised. The portions of the content which have been revised are identified through the use of italic text or in bold, and [employer] has neither reviewed nor approved the modified material. All other unmodified content is copyright [facility] [employer] Please see references footnoted in the original [facility] [employer] edition 2016 Admission Criteria Met?: Yes LUDWIG PRICE Jun 04, 2017 02:18
[2017-06-04 04:15] LABS: BASO # 0.1 x10^3/uL (0.0-0.2); BASO % 0 % (0-3); EOS % 3 % (0-3); HEMATOCRIT 46.3 % (39.0-53.0); HEMOGLOBIN 15.2 g/dL (13.0-17.5); LYMPH # 2.7 x10^3/uL (1.0-4.8); LYMPH % 21 % (24-48); MEAN CORPUSCULAR HEMOGLOBIN 27 pg (25-35); MEAN CORPUSCULAR HGB CONC 33 g/dL (31-37); MEAN CORPUSCULAR VOLUME 82 fL (79-100); MONO % 4 % (0-9); NEUT % 73 % (31-73); PLATELET COUNT 380 x10^3/uL (140-400); RED BLOOD COUNT 5.64 x10^6/uL (4.30-5.70); RED CELL DISTRIBUTION WIDTH 13.3 % (11.5-14.5); WHITE BLOOD COUNT 13.1 x10^3/uL (4.0-11.0)
[2017-06-04 04:46] LABS: ALBUMIN 3.9 g/dL (3.4-5.0); ALBUMIN/GLOBULIN RATIO 0.9 (1.0-1.7); CALCIUM 9.6 mg/dL (8.5-10.1); CREATININE 1.1 mg/dL (0.7-1.3); POTASSIUM 3.9 mmol/L (3.5-5.1); TOTAL BILIRUBIN 0.8 mg/dL (0.2-1.0); TOTAL PROTEIN 8.2 g/dL (6.4-8.2)
[2017-06-04 04:48] LABS: CHOLESTEROL/HDL RATIO 3.7
[2017-06-04] MEDS: IPRATRPIUM/ALBUTEROL 0.5/2.5MG 3 ML NEBU. NEB SCH ×4 (07:50→20:02)
--- NOTE | 2017-06-04 08:14 | CARD ---
APPROVED REPORT EXAM: Two-dimensional and M-mode echocardiogram with Doppler and color Doppler. Other Information Quality : Good INDICATION Congestive Heart Failure 2D DIMENSIONS RVDd2.6 (2.9-3.5cm)Left Atrium(2D)3.4 (1.6-4.0cm) IVSd1.4 (0.7-1.1cm)Aortic Root(2D)3.4 (2.0-3.7cm) LVDd7.1 (3.9-5.9cm)LVOT Diameter2.9 (1.8-2.4cm) PWd1.4 (0.7-1.1cm)LVDs6.3 (2.5-4.0cm) FS (%) 11.5 %SV64.1 ml LVEF(%)24.1 (>50%) Aortic Valve AoV Peak Seth.107.9cm/sAoV VTI18.0cm AO Peak GR.4.7mmHgLVOT VTI 14.70cm AO Mean GR.3mmHgAVA (VTI)5.40cm2 Mitral Valve MV E Sxxveyvo73.5cm/sMV DECEL LTLY561na MV A Slvhnsyi70.3cm/sE/A Ratio0.8 TDI Lateral E' P. V5.73cm/sMedial E' P. V4.83cm/s E/Lateral E'9.2E/Medial E'10.9 Pulmonary Vein S1 Jxqhcvid08.9cm/sS2 Qmzzjtbr89.18cm/s D2 Dwhvtdpq00.2cm/s LEFT VENTRICLE The Left Ventricle is moderately dilated. There is mild to moderate concentric left ventricular hyper trophy. Left ventricle ejection fraction is severely impaired. The Ejection Fraction is 25%. Severe g lobal hypokinesis is noted. Transmitral Doppler flow pattern is Grade I-abnormal relaxation pattern. RIGHT VENTRICLE The right ventricle is normal size. The right ventricular systolic function is normal. ATRIA The left atrium size is normal. The right atrium size is normal. The interatrial septum is intact wit h no evidence for an atrial septal defect or patent foramen ovale as noted on 2-D or Doppler imaging. AORTIC VALVE The aortic valve is normal in structure and function. Doppler and Color Flow revealed trace aortic re gurgitation. There is no significant aortic valvular stenosis. MITRAL VALVE The mitral valve is normal in structure and function. There is no evidence of mitral valve prolapse. There is no mitral valve stenosis. Doppler and Color-flow revealed mild mitral regurgitation. TRICUSPID VALVE The tricuspid valve is normal in structure and function. Doppler and Color Flow revealed no tricuspid valve regurgitation noted. There is no tricuspid valve stenosis. PULMONIC VALVE Doppler and Color Flow revealed no pulmonic valvular regurgitation. There is no pulmonic valvular ashley nosis. GREAT VESSELS The aortic root is normal in size. The ascending aorta is normal in size. The IVC is normal in size a nd collapses >50% with inspiration. PERICARDIAL EFFUSION There is no evidence of significant pericardial effusion. Critical Notification Physician Notified Date: 06/03/2017 Time: 15:39 Physician Name:Mary Herrera NP Critical Value: Yes <Conclusion> Left ventricle ejection fraction is severely impaired. The Ejection Fraction is 25%. Severe global hypokinesis is noted.
--- NOTE | 2017-06-04 09:58 | PDOC ---
PULMONARY PROGRESS NOTES Subjective Pt feels less soa and less wheeze Vitals Vital Signs Date Time Temp Pulse Resp B/P (MAP) Pulse Ox O2 Delivery O2 Flow Rate FiO2 06/04/17 08:00 Nasal Cannula 2.0 06/04/17 07:50 96 06/04/17 07:00 98.8 82 19 163/99 (120) 98.8 ROS: No Nausea, No Chest Pain, No Abdominal Pain, No Increase Cough General: Alert Lungs: Clear Cardiovascular: S1 Abdomen: Soft Neuro Exam: Alert Extremities: No Edema Labs Laboratory Tests Test 06/03/17 06:06 06/03/17 13:30 06/03/17 19:35 06/04/17 03:46 White Blood Count 7.6 x10^3/uL (4.0-11.0) 13.1 x10^3/uL (4.0-11.0) Red Blood Count 5.03 x10^6/uL (4.30-5.70) 5.64 x10^6/uL (4.30-5.70) Hemoglobin 13.8 g/dL (13.0-17.5) 15.2 g/dL (13.0-17.5) Hematocrit 41.7 % (39.0-53.0) 46.3 % (39.0-53.0) Mean Corpuscular Volume 83 fL (79-100) 82 fL (79-100) Mean Corpuscular Hemoglobin 28 pg (25-35) 27 pg (25-35) Mean Corpuscular Hemoglobin Concent 33 g/dL (31-37) 33 g/dL (31-37) Red Cell Distribution Width 13.2 % (11.5-14.5) 13.3 % (11.5-14.5) Platelet Count 304 x10^3/uL (140-400) 380 x10^3/uL (140-400) Neutrophils (%) (Auto) 56 % (31-73) 73 % (31-73) Lymphocytes (%) (Auto) 25 % (24-48) 21 % (24-48) Monocytes (%) (Auto) 5 % (0-9) 4 % (0-9) Eosinophils (%) (Auto) 14 % (0-3) 3 % (0-3) Basophils (%) (Auto) 1 % (0-3) 0 % (0-3) Neutrophils # (Auto) 4.2 x10^3uL (1.8-7.7) 9.5 x10^3uL (1.8-7.7) Lymphocytes # (Auto) 1.9 x10^3/uL (1.0-4.8) 2.7 x10^3/uL (1.0-4.8) Monocytes # (Auto) 0.4 x10^3/uL (0.0-1.1) 0.5 x10^3/uL (0.0-1.1) Eosinophils # (Auto) 1.0 x10^3/uL (0.0-0.7) 0.3 x10^3/uL (0.0-0.7) Basophils # (Auto) 0.1 x10^3/uL (0.0-0.2) 0.1 x10^3/uL (0.0-0.2) Sodium Level 139 mmol/L (136-145) 137 mmol/L (136-145) Potassium Level 3.9 mmol/L (3.5-5.1) 3.9 mmol/L (3.5-5.1) Chloride Level 102 mmol/L (98-107) 97 mmol/L (98-107) Carbon Dioxide Level 28 mmol/L (21-32) 27 mmol/L (21-32) Anion Gap 9 (6-14) 13 (6-14) Blood Urea Nitrogen 17 mg/dL (8-26) 20 mg/dL (8-26) Creatinine 1.4 mg/dL (0.7-1.3) 1.1 mg/dL (0.7-1.3) Estimated GFR (Cockcroft-Gault) 66.6 88.0 Glucose Level 101 mg/dL (70-99) 103 mg/dL (70-99) Calcium Level 8.5 mg/dL (8.5-10.1) 9.6 mg/dL (8.5-10.1) Total Bilirubin 1.0 mg/dL (0.2-1.0) 0.8 mg/dL (0.2-1.0) Direct Bilirubin 0.2 mg/dL (0.0-0.2) Aspartate Amino Transf (AST/SGOT) 19 U/L (15-37) 19 U/L (15-37) Alanine Aminotransferase (ALT/SGPT) 32 U/L (16-63) 32 U/L (16-63) Alkaline Phosphatase 98 U/L (46-116) 111 U/L (46-116) Troponin I Quantitative 0.332 ng/mL (0.000-0.055) 0.282 ng/mL (0.000-0.055) 0.251 ng/mL (0.000-0.055) FW-Ssr-T-Type Natriuretic Peptide 524 pg/mL (0-124) Total Protein 7.5 g/dL (6.4-8.2) 8.2 g/dL (6.4-8.2) Albumin 3.7 g/dL (3.4-5.0) 3.9 g/dL (3.4-5.0) BUN/Creatinine Ratio 18 (6-20) Albumin/Globulin Ratio 0.9 (1.0-1.7) Triglycerides Level 78 mg/dL (0-150) Cholesterol Level 205 mg/dL (0-200) LDL Cholesterol, Calculated 134 mg/dL (0-100) VLDL Cholesterol, Calculated 16 mg/dL (0-40) Non-HDL Cholesterol Calculated 150 mg/dL (0-129) HDL Cholesterol 55 mg/dL (40-60) Cholesterol/HDL Ratio 3.7 Laboratory Tests Test 06/03/17 13:30 06/03/17 19:35 06/04/17 03:46 Troponin I Quantitative 0.282 ng/mL (0.000-0.055) 0.251 ng/mL (0.000-0.055) White Blood Count 13.1 x10^3/uL (4.0-11.0) Red Blood Count 5.64 x10^6/uL (4.30-5.70) Hemoglobin 15.2 g/dL (13.0-17.5) Hematocrit 46.3 % (39.0-53.0) Mean Corpuscular Volume 82 fL (79-100) Mean Corpuscular Hemoglobin 27 pg (25-35) Mean Corpuscular Hemoglobin Concent 33 g/dL (31-37) Red Cell Distribution Width 13.3 % (11.5-14.5) Platelet Count 380 x10^3/uL (140-400) Neutrophils (%) (Auto) 73 % (31-73) Lymphocytes (%) (Auto) 21 % (24-48) Monocytes (%) (Auto) 4 % (0-9) Eosinophils (%) (Auto) 3 % (0-3) Basophils (%) (Auto) 0 % (0-3) Neutrophils # (Auto) 9.5 x10^3uL (1.8-7.7) Lymphocytes # (Auto) 2.7 x10^3/uL (1.0-4.8) Monocytes # (Auto) 0.5 x10^3/uL (0.0-1.1) Eosinophils # (Auto) 0.3 x10^3/uL (0.0-0.7) Basophils # (Auto) 0.1 x10^3/uL (0.0-0.2) Sodium Level 137 mmol/L (136-145) Potassium Level 3.9 mmol/L (3.5-5.1) Chloride Level 97 mmol/L (98-107) Carbon Dioxide Level 27 mmol/L (21-32) Anion Gap 13 (6-14) Blood Urea Nitrogen 20 mg/dL (8-26) Creatinine 1.1 mg/dL (0.7-1.3) Estimated GFR (Cockcroft-Gault) 88.0 BUN/Creatinine Ratio 18 (6-20) Glucose Level 103 mg/dL (70-99) Calcium Level 9.6 mg/dL (8.5-10.1) Total Bilirubin 0.8 mg/dL (0.2-1.0) Aspartate Amino Transf (AST/SGOT) 19 U/L (15-37) Alanine Aminotransferase (ALT/SGPT) 32 U/L (16-63) Alkaline Phosphatase 111 U/L (46-116) Total Protein 8.2 g/dL (6.4-8.2) Albumin 3.9 g/dL (3.4-5.0) Albumin/Globulin Ratio 0.9 (1.0-1.7) Triglycerides Level 78 mg/dL (0-150) Cholesterol Level 205 mg/dL (0-200) LDL Cholesterol, Calculated 134 mg/dL (0-100) VLDL Cholesterol, Calculated 16 mg/dL (0-40) Non-HDL Cholesterol Calculated 150 mg/dL (0-129) HDL Cholesterol 55 mg/dL (40-60) Cholesterol/HDL Ratio 3.7 Medications Active Scripts Medications Dose Route/Sig Max Daily Dose Days Date Category Dose Instructions Albuterol Sulfate Neb Soln (Albuterol Sulfate) 2.5 Mg/3 Ml Vial.neb 1 Vial NEB PRN Q4HRS PRN 11/20/16 Rx Zithromax Packet (Azithromycin) 1 Gm Packet 1 Packet PO ONCE 01/26/15 Reported take as directed, antibiotic for infection Flonase Allergy Relief (Fluticasone Propionate) 9.9 Ml [place].susp 9.9 Ml NS QID 01/26/15 Reported 1-2 sprays four times daily for congestion Advair 250-50 Diskus (Fluticasone/Salmeterol) 1 Each Disk.w.dev 1 Inh IH BID 01/26/15 Reported Albuterol Sulfate Hfa Inhaler (Albuterol Sulfate) 8.5 Gm Hfa.aer.ad 2 Puff INH Q2HR 01/26/15 Reported as needed every 2 hours for shortness of air Cetirizine Hcl 10 Mg Tablet 10 Mg PO DAILY 01/26/15 Reported Impression . 1. Progressive dyspnea and bronchospasm secondary to acute exacerbation of asthma. 2. Acute exacerbation of asthma, suspect secondary to acute bronchitis and inhalation of marijuana smoke. 3. Elevated troponin level per Cardiology. 4. Seasonal allergies. 5. Clinical symptoms and signs of obstructive sleep apnea. Plan . Cath today wheeze is better home in am ok by me, on Flovent and taper pred, doxy 1. Recommend the patient be started on Flovent 220 two puffs twice a day. 2. Discharge home on a tapering dose of prednisone. 3. Discharge home on doxycycline. 4. Avoid inhalation of any irritant fumes or tobacco. 5. Follow up in the office for pulmonary function testing. 6. The patient instructed on the importance of discontinuing tobacco and marijuana use. 7. Possible outpatient polysomnogram. MOSES ALCANTARA MD Jun 04, 2017 09:58
[2017-06-04] MEDS: predniSONE 20 MG TABLET PO SCH (11:54)
[2017-06-04] MEDS: CARVEDILOL 3.125 MG TABLET. PO SCH ×2 (11:55→18:18)
[2017-06-04] MEDS: amLODIPine BESYLATE 5 MG TABLET PO SCH (11:55)
[2017-06-04] MEDS ORDERED: VERAPAMIL 5 MG/2 ML VIAL. ONE ×2 (13:35)
[2017-06-04] MEDS ORDERED: MIDAZOLAM HCL/PF 2 MG/2 ML VIAL. ONE (13:35)
[2017-06-04] MEDS ORDERED: NITROGLYCERIN 200 MCG/2 ML SYRINGE FOR CATH/VASC LAB. ONE (13:35)
[2017-06-04] MEDS ORDERED: HEPARIN for IV BOLUS 10,000 UNIT/10 ML VIAL. ONE (13:35)
[2017-06-04] MEDS ORDERED: fentaNYL PF VIAL 100 MCG/2 ML VIAL ONE (13:35)
[2017-06-04] MEDS ORDERED: IOHEXOL 300 MG/ML 100ML VIAL. ONE (13:42)
[2017-06-04] MEDS ORDERED: LIDOCAINE 2% 20 ML VIAL. ONE (13:42)
[2017-06-04] MEDS ORDERED: HEPARIN for IV BOLUS 10,000 UNIT/10 ML VIAL. IART ONE (13:45)
[2017-06-04] MEDS ORDERED: MIDAZOLAM HCL/PF 2 MG/2 ML VIAL. IV ONE (13:45)
[2017-06-04] MEDS ORDERED: VERAPAMIL 5 MG/2 ML VIAL. IART ONE (13:45)
[2017-06-04] MEDS ORDERED: fentaNYL PF VIAL 100 MCG/2 ML VIAL IV ONE (13:45)
[2017-06-04] MEDS ORDERED: IOHEXOL 300 MG/ML 100ML VIAL. IART ONE (13:45)
[2017-06-04] MEDS ORDERED: NITROGLYCERIN 200 MCG/2 ML SYRINGE FOR CATH/VASC LAB. IART ONE (13:45)
[2017-06-04] MEDS ORDERED: LIDOCAINE 2% 20 ML VIAL. IJ ONE (13:45)
[2017-06-04] MEDS ORDERED: CONTRAST GIVEN MC PRN (14:00)
--- NOTE | 2017-06-04 14:24 | PDOC ---
PROGRESS NOTES Chief Complaint Chief Complaint Dyspnea ASSESSMENT AND PLAN: 1. Asthma exacerbation: steroids, nebs. appreciate Dr Barrera's input 2. Troponin leak: decreasing. appreciate Dr Mccoy's input: cath planned in AM 3. Elevated pro-BNP: echo pending. 4. HTN: poorly controlled. increase BB, monitor for respir sx History of Present Illness History of Present Illness feels ok, no residual pain or SOB Vitals Vitals Vital Signs Date Time Temp Pulse Resp B/P (MAP) Pulse Ox O2 Delivery O2 Flow Rate FiO2 06/04/17 11:55 98 168/102 06/04/17 11:36 94 Nasal Cannula 2.0 06/04/17 11:00 98.6 19 98.6 Physical Exam General: Alert, Oriented X3, Cooperative, mild distress Heart: Regular rate, Normal S1, Normal S2 Lungs: Clear Abdomen: Normal bowel sounds, Soft Extremities: No clubbing, No edema, Normal pulses Skin: No rashes, No breakdown, No significant lesion Labs LABS Laboratory Tests Test 06/03/17 19:35 06/04/17 03:46 Troponin I Quantitative 0.251 ng/mL (0.000-0.055) White Blood Count 13.1 x10^3/uL (4.0-11.0) Red Blood Count 5.64 x10^6/uL (4.30-5.70) Hemoglobin 15.2 g/dL (13.0-17.5) Hematocrit 46.3 % (39.0-53.0) Mean Corpuscular Volume 82 fL (79-100) Mean Corpuscular Hemoglobin 27 pg (25-35) Mean Corpuscular Hemoglobin Concent 33 g/dL (31-37) Red Cell Distribution Width 13.3 % (11.5-14.5) Platelet Count 380 x10^3/uL (140-400) Neutrophils (%) (Auto) 73 % (31-73) Lymphocytes (%) (Auto) 21 % (24-48) Monocytes (%) (Auto) 4 % (0-9) Eosinophils (%) (Auto) 3 % (0-3) Basophils (%) (Auto) 0 % (0-3) Neutrophils # (Auto) 9.5 x10^3uL (1.8-7.7) Lymphocytes # (Auto) 2.7 x10^3/uL (1.0-4.8) Monocytes # (Auto) 0.5 x10^3/uL (0.0-1.1) Eosinophils # (Auto) 0.3 x10^3/uL (0.0-0.7) Basophils # (Auto) 0.1 x10^3/uL (0.0-0.2) Sodium Level 137 mmol/L (136-145) Potassium Level 3.9 mmol/L (3.5-5.1) Chloride Level 97 mmol/L (98-107) Carbon Dioxide Level 27 mmol/L (21-32) Anion Gap 13 (6-14) Blood Urea Nitrogen 20 mg/dL (8-26) Creatinine 1.1 mg/dL (0.7-1.3) Estimated GFR (Cockcroft-Gault) 88.0 BUN/Creatinine Ratio 18 (6-20) Glucose Level 103 mg/dL (70-99) Calcium Level 9.6 mg/dL (8.5-10.1) Total Bilirubin 0.8 mg/dL (0.2-1.0) Aspartate Amino Transf (AST/SGOT) 19 U/L (15-37) Alanine Aminotransferase (ALT/SGPT) 32 U/L (16-63) Alkaline Phosphatase 111 U/L (46-116) Total Protein 8.2 g/dL (6.4-8.2) Albumin 3.9 g/dL (3.4-5.0) Albumin/Globulin Ratio 0.9 (1.0-1.7) Triglycerides Level 78 mg/dL (0-150) Cholesterol Level 205 mg/dL (0-200) LDL Cholesterol, Calculated 134 mg/dL (0-100) VLDL Cholesterol, Calculated 16 mg/dL (0-40) Non-HDL Cholesterol Calculated 150 mg/dL (0-129) HDL Cholesterol 55 mg/dL (40-60) Cholesterol/HDL Ratio 3.7 NATHANIEL WHATLEY MD Jun 04, 2017 14:24
--- NOTE | 2017-06-04 15:16 | CARD ---
APPROVED REPORT Procedure(s) performed: Sedation Time: 44 min LHC + Coronary angiography + Left ventriculography HISTORY The patient is a 46 year-old male with a history of : hypertension. INDICATION The indication(s) include : non-STEMI . PROCEDURE NARRATIVE The patient was brought electively to the cardiac catheterization lab. A timeout was performed confi rming the patient's name, date of , procedure, and site of procedure. All necessary personnel w ere wearing the appropriate protective equipment and radiation monitor devices. After explaining the risks and benefits of the procedure and alternatives, informed consent was obtained. (See nursing no xavier for medications administered). The right wrist was sterilely prepped and draped in the usual fas hion. The right wrist was infiltrated with 1 mL of 2% lidocaine for subcutaneous anesthesia. Initia l access into the right radial artery was unsuccessful due to spasm. Therefore, access was obtained i n the R groin via the modified seldinger technique. A 6Fs malcolm was inserted into the right common f emoral artery without difficulty. Right and left coronary angiography was performed using a [id number] a nd JR4. Left ventricular end diastolic pressure was obtained with a pigtail catheter and pullback wa s performed after left ventriculography. All catheter exchanges and advancements were performed over a guidewire. At case completion the right groin sheath was removed and hemostasis was achieved with an Angioseal device. The patient tolerated the procedure well and there were no immediate complicat ions. HEMODYNAMICS: LVEDP 7 mm Hg No gradient on LV to aortic pullback. LEFT VENTRICULOGRAM: EF 25% *Severe global hypokinesis *No significant mitral or aortic insufficiency CORONARY ANGIOGRAPHY: LM is a large caliber vessel with normal angiographic appearance. LAD is a large caliber vessel with normal angiographic appearance. The vessel is hyperdominant and wr aps around the apex. Ramus is a moderate caliber vessel with normal angiographic apeparance. LCx is a moderate caliber dominant vessel with normal angiographic appearance. OM1 is a moderate caliber vessel with normal angiographic appearance. LPDA is a moderate caliber vessel with normal angiographic appearance. RCA is a moderate caliber non-dominant vessel with normal angiographic appearance. RPDA is a diminutive vessel with normal angiographic appearance. Conclusion 1. Severe LV dysfunction. EF 25% 2. Normal angiographic appearance of the coronary arteries. Recommendations Aggressive Medical Therapy
[2017-06-05 02:02] VITALS: BP 150/88
[2017-06-05] MEDS ORDERED: ALBUTEROL SULFATE 2.5 MG/3 ML NEBU. NEB PRN (02:15)
[2017-06-05 02:22] VITALS: BP 153/103
[2017-06-05 07:00] VITALS: BP 142/94
[2017-06-05] MEDS: IPRATRPIUM/ALBUTEROL 0.5/2.5MG 3 ML NEBU. NEB SCH ×2 (07:31→11:35)
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
[2017-06-05] MEDS: predniSONE 20 MG TABLET PO SCH (09:13)
[2017-06-05] MEDS: CARVEDILOL 6.25 MG TABLET. PO SCH ×2 (09:21→16:28)
[2017-06-05] MEDS: amLODIPine BESYLATE 5 MG TABLET PO SCH (09:21)
[2017-06-05 10:30] VITALS: BP 123/89
--- NOTE | 2017-06-05 10:54 | PDOC ---
AGUSTINA WATSON APRN 06/05/17 1054: CARDIO Progress Notes Date and Time Date of Service 06/05/17 Time of Evaluation 1035 Subjective Subjective: No Chest Pain, No Palpitations, Other (SOA improved.) Vitals Vitals Vital Signs Date Time Temp Pulse Resp B/P (MAP) Pulse Ox O2 Delivery O2 Flow Rate FiO2 06/05/17 09:21 91 142/94 06/05/17 08:00 Nasal Cannula 3.0 06/05/17 07:34 95 06/05/17 07:00 98.1 18 98.1 Weight Weight [ ] Input and Output Intake and Output Intake and Output 06/06/17 07:00 Intake Total 300 ml Balance 300 ml Intake Oral 300 ml Physical Exam HEENT: Neck Supple W Full Motion Chest: Symmetric LUNGS: Other (bilateral expiratroy wheezes) Heart: S1S2, RRR, no murmurs, other Abdomen: Soft N/T Extremities: No Edema, No Calf Tenderness, Other (right groin arteriotomy site soft, clean, and dry. No erythema or hematoma present. Neurovascular status intact. ) Neurology: alert, oriented, follow commands Assessment Assessment 1. Acute on chronic systolic HF with NICM; LVEF 25% 2. NSTEMI 3. Hypertension 4. Acute asthma exacerbation Recommendations Discontinue Norvasc Continue BB and start Entresto for HF optimization LifeVest upon discharge for primary prevention of SCD F/u in our office with Dr. Mccoy in 2 weeks as scheduled Repeat echo in 3 months, on an outpatient basis, to reassess LV function/ evaluate need for ICD placement. CONNIE MCCOY MD 06/05/17 1731: CARDIO Progress Notes Plan Plan Patient seen and examined. Agree with above nurse practitioner note. No acute events overnight. Medication changes as noted above. Follow-up in the office in 2 weeks. AGUSTINA WATSON APRN Jun 05, 2017 10:54 CONNIE MCCOY MD Jun 05, 2017 17:31
[2017-06-05] MEDS ORDERED: SACUBITRIL/VALSARTAN 24/26MG TABLET. PO SCH (13:00)
[2017-06-05 13:48] LABS: BARBITURATES NEG (NEG); BENZODIAZEPINES POS (NEG); CANNABINOIDS NEG (NEG); COCAINE NEG (NEG); METHADONE NEG (NEG); OPIATES NEG (NEG); PHENCYCLIDINE NEG (NEG)
[2017-06-05] MEDS ORDERED: ATOR10TA60 PO (14:00)
[2017-06-05] MEDS ORDERED: CARV6.252 PO (14:00)
[2017-06-05] MEDS ORDERED: PRED-220 PO (14:00)
[2017-06-05] MEDS ORDERED: SACU1TAB PO (14:00)
[2017-06-05 14:30] VITALS: BP 135/87
[2017-06-05] MEDS ORDERED: FLUT12AE IH (14:40)
[2017-06-05] MEDS ORDERED: MONT10TA9 PO (14:40)
[2017-06-05] MEDS ORDERED: DOXY100T9 PO (14:40)
[2017-06-05] MEDS ORDERED: PROAIR HFA8.5 GM INH (14:40)
[2017-06-05 16:28] VITALS: BP 135/87
[2017-06-05] MEDS ORDERED: ATORVASTATIN CALCIUM 10 MG TABLET. PO SCH (21:00)
--- NOTE | 2017-06-06 22:52 | DS ---
DATE OF DISCHARGE: 06/05/2017 CHIEF COMPLAINT: Dyspnea. HOSPITAL COURSE: The patient is a 46-year-old gentleman who presented with acute shortness of breath to the Emergency Room. He was diagnosed with an asthma exacerbation, started on steroids and nebulizers. Pulmonary consult was obtained. Dr. Barrera guided further treatment. During ER workup, he was found with a mild troponin leak. Cardiology was consulted as well and a catheterization was undertaken of this day of discharge, which did not reveal any significant changes in the coronary arteries, but revealed severe LV dysfunction with an EF of 25, confirmed by echocardiogram. The patient was therefore started on beta blockers, aspirin, Entresto. A LifeVest was ordered for him to wear at time of discharge to prevent sudden cardiac . He will follow up closely with Cardiology Clinic. PHYSICAL EXAMINATION: VITAL SIGNS: Show a blood pressure of 142/94, heart rate of 91, respiratory rate at 18. He is afebrile. GENERAL: This is a well-nourished 46-year-old gentleman, alert and oriented, no acute distress. LUNGS: Clear. HEART: Has regular rate and rhythm, no murmurs. ABDOMEN: Has positive bowel sounds, soft, nontender. EXTREMITIES: Show no edema. DISCHARGE DIAGNOSES: Asthma exacerbation, severe congestive heart failure. DISCHARGE CONDITION: Improved. DISCHARGE DISPOSITION: To home. DISCHARGE MEDICATIONS: Please refer to MAR. DISCHARGE INSTRUCTIONS: The patient will follow up with Cardiology as previously arranged and follow up with his PCP. NATHANIEL WHATLEY MD DR: AMBER/jayesh JOB#: [id number] / [id number] VICKIE
== END 2017-06-05 16:45 | disposition home or self-care (01) | DRG 280 ==
LOC: ER 05:37 → 2 SOUTH 07:55
PROVIDERS: ADMIT Internal Medicine; ATTEND Internal Medicine
PROC: 4A023N7 Measurement of Cardiac Sampling and Pressure, Left Heart, Percutaneous Approach (ICD-10-PCS; principal; 2017-06-04)
PROC: B2151ZZ Fluoroscopy of Left Heart using Low Osmolar Contrast (ICD-10-PCS; 2017-06-04)
PROC: B2111ZZ Fluoroscopy of Multiple Coronary Arteries using Low Osmolar Contrast (ICD-10-PCS; 2017-06-04)
DX: I21.4 Non-ST elevation (NSTEMI) myocardial infarction (principal); I50.23 Acute on chronic systolic (congestive) heart failure; I42.9 Cardiomyopathy, unspecified; J45.901 Unspecified asthma with (acute) exacerbation; I13.0 Hypertensive heart and chronic kidney disease with heart failure and stage 1 through stage 4 chronic kidney disease, or unspecified chronic kidney disease; E66.9 Obesity, unspecified; F12.90 Cannabis use, unspecified, uncomplicated; I25.10 Atherosclerotic heart disease of native coronary artery without angina pectoris; J40 Bronchitis, not specified as acute or chronic; F17.210 Nicotine dependence, cigarettes, uncomplicated; N18.9 Chronic kidney disease, unspecified; Z68.36 Body mass index [BMI] 36.0-36.9, adult; Z82.49 Family history of ischemic heart disease and other diseases of the circulatory system
CPT/HCPCS: 36415; 71020; 80048; 80053; 80061; 80076; 80307; 83880; 84443; 84484; 85025; 93005; 93306; 93458; 93971; 94250; 94620; 94640; 94760; 99152; 99153; C1769; C1771; C1892; G0269; J1644; J1940; J2250; J3010; J3490; J7512; J7613; J7620; J7626; Q9967; 99285-25; G0479; J2001

== ENCOUNTER → 2017-06-19 | Outpatient (CLI) | payer OTHER ==
[2017-06-05 16:28] VITALS: BP 135/87
[~2017-06-19] MED LIST changes: +ATOR10TA60 PO; +CARV6.252 PO; +DOXY100T9 PO; +FLUT12AE IH; +MONT10TA9 PO; +PRED-220 PO; +PROAIR HFA8.5 GM INH; +SACU1TAB PO
[2017-06-19 11:34] LABS: CALCIUM 8.7 mg/dL (8.5-10.1); CREATININE 1.1 mg/dL (0.7-1.3); POTASSIUM 4.6 mmol/L (3.5-5.1)
== END | disposition home or self-care (01) ==
LOC: LAB 10:58
PROVIDERS: ATTEND Nurse Practitioner
DX: I42.8 Other cardiomyopathies (principal)
CPT/HCPCS: 36415; 80048

== ENCOUNTER → 2017-07-17 | Outpatient (CLI) | payer OTHER ==
[2017-07-17 11:12] LABS: CALCIUM 8.7 mg/dL (8.5-10.1); CREATININE 1.2 mg/dL (0.7-1.3); GFR 79.6; POTASSIUM 4.6 mmol/L (3.5-5.1)
== END | disposition home or self-care (01) ==
LOC: LAB 10:33
PROVIDERS: ATTEND Internal Medicine Cardiovascular Disease
DX: I42.9 Cardiomyopathy, unspecified (principal)
CPT/HCPCS: 36415; 80048; 83880

== ENCOUNTER → 2017-10-11 | Outpatient (CLI) | payer OTHER | END | disposition home or self-care (01) | LOC: ECHO 08:46 | DX: I42.9 Cardiomyopathy, unspecified (principal); I51.7 Cardiomegaly | CPT/HCPCS: 93306 ==

== ENCOUNTER → 2018-04-16 | Outpatient (CLI) | payer OTHER | END | disposition home or self-care (01) | LOC: NM 10:26 | DX: I42.8 Other cardiomyopathies (principal); I10 Essential (primary) hypertension | CPT/HCPCS: 78472; 96374; A9560 ==

== ENCOUNTER → 2020-02-15 | Outpatient (CLI) | payer OTHER ==
[~2020-02-15] MED LIST changes: +ALBU2.5V8 INH; +CARV6.2511 PO; -CARV6.252 PO; +DOXY-96 PO; -DOXY100T9 PO; +MONT10TA49 PO; -MONT10TA9 PO; -PROAIR HFA8.5 GM INH
--- NOTE | 2020-02-15 10:33 | CARD ---
MR#: [id number] Date of Study: 02/15/2020 Ordering Physician: CONNIE LEON, Referring Physician: CONNIE LEON, Tech: Елена Ochoa [facility] APPROVED REPORT EXAM: Two-dimensional and M-mode echocardiogram with Doppler and color Doppler. Other Information Quality : Good INDICATION Non-Ischemic Cardiomypoathy 2D DIMENSIONS RVDd3.0 (2.9-3.5cm)Left Atrium(2D)3.7 (1.6-4.0cm) IVSd1.2 (0.7-1.1cm)Aortic Root(2D)3.8 (2.0-3.7cm) LVDd7.0 (3.9-5.9cm)LVOT Diameter2.5 (1.8-2.4cm) PWd1.1 (0.7-1.1cm)LVDs4.9 (2.5-4.0cm) FS (%) 29.8 %SV140.4 ml LVEF(%)55.5 (>50%) Aortic Valve AoV Peak Seth.107.9cm/sAoV VTI17.3cm AO Peak GR.4.7mmHgLVOT Peak Seth.75.5cm/s AO Mean GR.3mmHgAVA (VMAX)3.51cm2 BITA (VTI)4.20cm2 Mitral Valve MV E Pretgdtm15.3cm/sMV DECEL [id number] MV A Xjwtrebu22.6cm/sE/A Ratio1.0 Tricuspid Valve TR P. Dzsihzbd882er/sRAP [id number] TR Peak Gr.25oaTbSXAW15daOx Pulmonary Vein S1 Porprytg64.1cm/sD2 Tyuwlkcg97.2cm/s LEFT VENTRICLE The Left Ventricle is moderately dilated. There is mild concentric left ventricular hypertrophy. Left ventricle systolic function is moderately impaired. The Ejection Fraction is 30-35%. There is global hypokinesis of the left ventricle. RIGHT VENTRICLE The right ventricle is normal size. The right ventricular systolic function is normal. ATRIA The left atrium size is normal. The right atrium size is normal. The interatrial septum is intact wit h no evidence for an atrial septal defect or patent foramen ovale as noted on 2-D or Doppler imaging. AORTIC VALVE The aortic valve is calcified but opens well. Doppler and Color Flow revealed no significant aortic r egurgitation. There is no significant aortic valvular stenosis. MITRAL VALVE The mitral valve is calcified but opens well. Mitral annular calcification is mild. There is no evide nce of mitral valve prolapse. There is no mitral valve stenosis. Doppler and Color-flow revealed trac e mitral regurgitation. TRICUSPID VALVE The tricuspid valve is normal in structure and function. Doppler and Color Flow revealed trace tricus pid regurgitation. The PA pressure was estimated at 32 mmHg. There is no tricuspid valve stenosis. PULMONIC VALVE The pulmonary valve is normal in structure and function. Doppler and Color Flow revealed no pulmonic valvular regurgitation. There is no pulmonic valvular stenosis. GREAT VESSELS The aortic root is normal in size. The ascending aorta is normal in size. The IVC is normal in size a nd collapses >50% with inspiration. PERICARDIAL EFFUSION There is no evidence of significant pericardial effusion. Critical Notification Critical Value: No <Conclusion> Left ventricle systolic function is moderately impaired. The Ejection Fraction is 30-35%. Trace mitral regurgitation. Trace tricuspid regurgitation. The PA pressure was estimated at 32 mmHg. There is no evidence of significant pericardial effusion. Signed by : Robert Humphries, Electronically Approved : 02/15/2020 10:33:07
== END | disposition home or self-care (01) ==
LOC: ECHO 08:49
PROVIDERS: ATTEND Internal Medicine Cardiovascular Disease
DX: I08.0 Rheumatic disorders of both mitral and aortic valves (principal); I42.9 Cardiomyopathy, unspecified
CPT/HCPCS: 93306

== ENCOUNTER → 2020-12-13 | Outpatient (CLI) | payer BC ==
[2020-12-13 12:58] LABS: ALBUMIN 3.4 g/dL (3.4-5.0); ALBUMIN/GLOBULIN RATIO 0.9 (1.0-1.7); CALCIUM 8.4 mg/dL (8.5-10.1); CREATININE 1.2 mg/dL (0.7-1.3); GFR 78.2; POTASSIUM 4.2 mmol/L (3.5-5.1); TOTAL BILIRUBIN 0.5 mg/dL (0.2-1.0); TOTAL PROTEIN 7.3 g/dL (6.4-8.2)
== END ==
LOC: LAB 11:57
PROVIDERS: ATTEND Internal Medicine Cardiovascular Disease
DX: I42.8 Other cardiomyopathies (principal)
CPT/HCPCS: 36415; 80053; 83880